=== PATIENT | male | born 1995 | race Caucasian/White ===

== ENCOUNTER 2016-08-06 21:39 | Emergency (ER) | payer SELFPAY ==
[2016-08-06] MEDS ORDERED: LORazepam 2 MG/ML INJ IVP ONE (21:45)
[2016-08-06] MEDS ORDERED: HALOPERIDOL LACT 5 MG/ML INJ IM ONE (21:45)
--- NOTE | 2016-08-06 21:51 | EDPHY ---
H & P Source: Patient Exam Limitations: No limitations - Medical/Surgical History Hx Asthma: No Hx Chronic Respiratory Disease: No Hx Diabetes: No Hx Cardiac Disease: No Hx Renal Disease: No Hx Cirrhosis: No Hx Alcoholism: No Hx HIV/AIDS: No Hx Splenectomy or Spleen Trauma: No - Family History Significant Family History: No pertinent family hx - Social History Smoking Status: Never smoked Alcohol Use: Heavy Time Seen by Provider: 08/06/16 21:43 HPI/ROS: CHIEF COMPLAINT: Intoxicated, suicidal HISTORY OF PRESENT ILLNESS: The patient is a approximately 19-year-old man who is on a day pass from a treatment center[place] [facility] helped bring him down. The while he was being brought down he made suicidal statements to them and they have placed him on a hold. EMS reports that a physician and psychiatrist were both involved in the rescue. The patient is completely uncooperative here. He will not answer questions. He refuses blood pressure and vital signs. REVIEW OF SYSTEMS: unable to obtain EXAM: GENERAL: dirty HEAD: Atraumatic, normocephalic. EYES: Pupils equal round and reactive to light, extraocular movements intact, sclera anicteric, conjunctiva are normal. ENT: TMs normal, nares patent, oropharynx clear without exudates. Moist mucous membranes. NECK: Normal range of motion, supple without lymphadenopathy or JVD. LUNGS: Breath sounds clear to auscultation bilaterally and equal. No wheezes rales or rhonchi. HEART: Regular rate and rhythm without murmurs, rubs or gallops. ABDOMEN: Soft, nontender, normoactive bowel sounds. No guarding, no rebound. No masses appreciated. BACK: No CVA tenderness, no spinal tenderness, step-offs or deformities EXTREMITIES: Normal range of motion, no pitting or edema. No clubbing or cyanosis. NEUROLOGICAL: Cranial nerves II through XII grossly intact. Normal speech, normal gait. 5/5 strength, normal movement in all extremities, normal sensation PSYCH: Combative, uncooperative SKIN: Warm, dry, normal turgor, no visible rashes or lesions. (Gordo Crews) Constitutional: Initial Vital Signs Temperature (C) 36.7 C 08/06/16 21:39 Heart Rate 93 08/06/16 21:39 Respiratory Rate 18 08/06/16 21:39 Blood Pressure 153/131 H 08/06/16 21:39 O2 Sat (%) 94 08/06/16 21:39 O2 Delivery Mode Room Air Allergies/Adverse Reactions: No Known Allergies Allergy (Verified 08/06/16 22:43) Home Medications: Medication Instructions Recorded NK [No Known Home Meds] 08/06/16 Medical Decision Making ED Course/Re-evaluation: 0145AM: This patient was initially given Haldol and Ativan he was sleeping. Resting comfortably however now he is awake and noted to be tachycardic in the 120s to 130s. He appears clinically dehydrated I have ordered her 1 L normal saline. He is intoxicated with alcohol nut is improving. Time of evaluation noted to be tachycardic 122. Will give him a fluid bolus and closely monitor this. He does not appear to be in withdrawal. He has no complaints at this time. He is coughing. No respiratory distress. (Tapan Luna) 7am--I assumed care of this patient at shift change. He has been evaluated by mental health and will likely go home with a referral for outpatient mental health. He denies suicidal ideation. 8am--cleared by for outpatient treatment of substance abuse/depression. (Maria Eugenia Vo) The patient is becoming combative. I will treat him with held on Ativan. Care transferred to Dr. Tapan Luna shift change. We are awaiting sobriety and re-evaluation. If when sober he denies suicidality I expect his hold could be lifted and he discharge back to his rehab facility. (Gordo Crews) Differential Diagnosis: 0553AM: Patient comp, resting. Heart rate currently 99. No acute distress. Sleeping this time. Tachycardia resolved earlier. (Tapan Luna) Partial list of the Differential diagnosis considered include but were not limited to; oppositional defiant , alcohol intoxication, suicidality, depression and although unlikely based on the history and physical exam, I also considered schizophrenia, bipolar head injury, personality disorder. (Gordo Crews) - Data Points Laboratory Results: Laboratory Results 08/06/16 21:43 08/06/16 21:43 Medications Given: Discontinued Medications Haloperidol Lactate (Haldol Injection) 10 mg IM EDNOW ONE Stop: 08/06/16 21:46 Last Admin: 08/06/16 21:45 Dose: 10 mg Sodium Chloride (Ns) 1,000 mls @ 0 mls/hr IV ONCE ONE PRN Reason: Wide Open Stop: 08/07/16 01:45 Last Admin: 08/07/16 01:53 Dose: 1,000 mls Sodium Chloride (Ns) 1,000 mls @ 0 mls/hr IV ONCE ONE PRN Reason: Wide Open Stop: 08/07/16 06:16 Last Admin: 08/07/16 06:23 Dose: 1,000 mls Lorazepam (Ativan Injection) 2 mg IVP EDNOW ONE Stop: 08/06/16 21:46 Last Admin: 08/06/16 21:45 Dose: 2 mg Departure - Departure Disposition: Home, Routine, Self-Care Clinical Impression: Suicidal ideation Alcohol intoxication Qualifiers: Complication of substance-induced condition: uncomplicated Qualified Code(s): F10.920 - Alcohol use, unspecified with intoxication, uncomplicated Condition: Fair Instructions: Abuse of Alcohol (ED), Suicide Prevention for Adults (ED) Additional Instructions: Follow-up with mental health as discussed. Referrals: Marge Burgos MD [Medical Doctor] - 5-7 days, call for appt.
[2016-08-06 21:52] LABS: ADD DIFF? NO; ADD MORPH? NO; ADD SCAN? YES; FRAGMENT RBC FLAG 0 (0-99); LEFT SHIFT FLG 0 (0-99); LIPEMIA HEMOLYSIS FLAG 90 (0-99)
[2016-08-06 22:07] LABS: ANION GAP 16 mEq/L (8-16); CALCIUM 9.4 mg/dL (8.5-10.4); CARBON DIOXIDE 25 mEq/l (22-31); CHLORIDE 108 mEq/L (97-110); CREATININE 0.8 mg/dL (0.7-1.3); ETHANOL SERUM 279 mg/dL (0-10); GLOMERULAR FILTRATION RATE > 60; GLUCOSE 75 mg/dL (70-100); POTASSIUM 4.2 mEq/L (3.5-5.2); SODIUM 149 mEq/L (134-144)
[2016-08-06 22:11] LABS: % IMMATURE GRANULYOCYTES 0.7 % (0.0-1.1); ABSOLUTE IMMATURE GRANULOCYTES 0.08 10^3/uL (0.00-0.10); HEMATOCRIT 44.8 % (40.0-51.0); HEMOGLOBIN 15.6 g/dL (13.7-17.5); MEAN CELL HEMOGLOBIN 31.2 pg (27.9-34.1); MEAN CELL HEMOGLOBIN CONCENTR. 34.8 g/dL (32.4-36.7); MEAN CELL VOLUME 89.6 fL (81.5-99.8); PLATELET CLUMPS FLAG 30 (0-99); PLATELET COUNT 294 10^3/uL (150-400); RED CELL DISTRIBUTION WIDTH 12.7 % (11.5-15.2)
[2016-08-06 22:13] LABS: ATYPICAL LYMPHOCYTE FLAG 110 (0-99)
[2016-08-06 22:33] LABS: SCAN NEGATIVE
[2016-08-07] MEDS ORDERED: NS 1,000 ML IV ONE ×2 (01:44→06:15)
[2016-08-07 05:06] VITALS: RESP 16
[2016-08-07 08:08] VITALS: BP 132/64; PULSE 99; TEMP 97.7; O2SAT 98
== END 2016-08-07 08:38 | disposition home or self-care (01) ==
LOC: EDBD 21:39
DX: R45.851 Suicidal ideations (principal); F10.929 Alcohol use, unspecified with intoxication, unspecified
CPT/HCPCS: 80305; 96374; G0480; J2060